=== PATIENT | female | born 1970 | race Caucasian/White ===

== ENCOUNTER → 2018-01-26 16:58 | Outpatient (CLI) | payer OTHER, SELFPAY ==
--- NOTE | 2018-01-26 17:01 | DI.MRI.S_ITS ---
PROCEDURE: MR LUMBAR SPINE WO CON INDICATIONS: LUMBAR SPINE PAIN TECHNIQUE: Noncontrast sagittal T1 spin echo and T2 fast echo, sagittal STIR, axial T1 and T2 fast spin echo through the lumbar spine. In cases with scoliosis, additional coronal T2 fast spin echo may be performed. COMPARISON: None. FINDINGS: Image quality: Excellent. Alignment and Curvature: There is normal bony alignment. Bone Marrow: Marrow is of normal overall signal. No acute vertebral body compression fractures. Spinal Cord: Conus medullaris terminates at the L1 level. Visualized cord demonstrates normal signal and size. Paraspinous Soft Tissues: No paravertebral masses. T12-L1: Normal appearance. L1-L2: Normal appearance. L2-L3: Normal appearance. L3-L4: Mild loss of disc height is seen. Loss of disc signal is seen. Mild generalized disc bulge is seen. Mild facet joint hypertrophy is seen. Minimal bilateral neural foraminal narrowing is seen. Minimal central canal narrowing is seen. L4-L5: The disc height is well-preserved. Loss of disc signal is seen at this level. Minimal bilateral neural foraminal narrowing is seen at this level. No significant central canal narrowing is seen. L5-S1: Normal appearance. IMPRESSION: Minimal to mild lower lumbar spine degenerative changes can be seen. Dictated by: Stefan Aldridge M.D. on 01/26/2018 at 17:01 Approved by: Stefan Aldridge M.D. on 01/26/2018 at 17:03
== END ==
PROVIDERS: Visit Provider Nurse Practitioner Family
DX: M54.5 Low back pain (principal); M51.26 Other intervertebral disc displacement, lumbar region
CPT/HCPCS: 72148

== ENCOUNTER 2018-08-13 09:35 | Day surgery (SDC) | payer OTHER, SELFPAY ==
[2018-08-13 09:51] VITALS: BP 140/74; PULSE 81; RESP 16; TEMP 37; O2SAT 100; BMI 33.4
[2018-08-13] MEDS: SODIUM CHLORIDE 0.9% 1,000 ML 200 ML IV (09:55)
--- NOTE | 2018-08-13 10:18 | PM.HP.1 ---
History of Present Illness Date Patient Seen: 08/13/18 Time Patient Seen: 10:18 Chief complaint: [id number] Narrative: Asymptomatic patient here for her 1st screening colonoscopy Patient History Social History household members: spouse Family & Social History Social History: household members spouse Meds Home Medications Medication Instructions Recorded Confirmed Type gabapentin 300 mg PO BID 08/13/18 08/13/18 History metoprolol succinate 25 mg PO BID 08/13/18 08/13/18 History simvastatin 10 mg PO QPM 08/13/18 08/13/18 History telmisartan [Micardis] 20 mg PO DAILY 08/13/18 08/13/18 History Allergies Allergy/AdvReac Type Severity Reaction Status Date / Time codeine Allergy Intermediate itching Verified 08/13/18 09:50 hydrocodone Allergy Intermediate Rash Verified 08/13/18 09:49 Sulfa (Sulfonamide Allergy Intermediate Hives Verified 08/13/18 09:48 Antibiotics) contrast dye Allergy Severe Anaphylaxis Uncoded 08/13/18 09:49 Review of Systems Review of Systems All systems reviewed & are unremarkable except as noted in HPI and below Exam Vital Signs (past 8 hours): - 08/13/18 09:51 Temperature 98.6 F Pulse Rate 81 Respiratory Rate 16 Blood Pressure 140/74 Pulse Oximetry 100 Oxygen Delivery Method Room Air Narrative Exam Narrative: The patient is alert and oriented vital signs are stable Lungs are clear no rales or wheezes Heart regular rhythm no murmur Abdomen soft and nontender Rectal to be done at colonoscopy Assessment & Plan Assessment & Plan narrative: Patient is here for her 1st screening colonoscopy is asymptomatic with no melena no hematochezia she understands the procedure and has no further questions.
[2018-08-13] MEDS: fentaNYL 250 MCG/5 ML INJ IV (10:29)
[2018-08-13] MEDS: MIDAZOLAM 5 MG/5 ML VIAL IV (10:30)
--- NOTE | 2018-08-13 10:47 | PM.OP.ENDO ---
Operative Date/Time/Diagnoses Date of procedure: 08/13/18 Time of procedure: 10:47 Pre-op diagnosis: Screening colonoscopy Post-op diagnosis: same Procedure & Clinicians Study performed: Total colonoscopy to the cecum Same procedure as scheduled: Yes Indications: Screening Surgeon: Best Miller Procedure Notes SCOAP/Timeout: Done Procedure in detail: Patient is properly identified during surgical pause given a total of 6 mg of Versed and 200 micro g of fentanyl throughout the procedure. The flexible fiberoptic colonoscope inserted transanally to the cecum patient has a normal colon. No tumors no polyps no ulcers no diverticuli procedure was well tolerated Scope withdrawal time: 7 Sedation minutes: 22 Specimen(s): none sent Complications: none Impression: Normal colon Recommendations: Colonscopy in 10 years Follow up: as needed Disposition: PACU
[2018-08-13 10:48] VITALS: BP 110/76; PULSE 85; RESP 12; TEMP 36.7; O2SAT 100
[2018-08-13 10:53] VITALS: BP 110/63; PULSE 77; RESP 12; TEMP 36.4; O2SAT 100
[2018-08-13 11:05] VITALS: BP 113/60; PULSE 69; RESP 14; TEMP 36.2; O2SAT 100
[2018-08-13 11:12] VITALS: BP 123/65; PULSE 62; RESP 12; TEMP 36.3; O2SAT 100
== END 2018-08-13 11:16 | disposition home or self-care (01) ==
PROVIDERS: PCP Nurse Practitioner; Visit Provider Surgery
PROC: 0DJD8ZZ Inspection of Lower Intestinal Tract, Via Natural or Artificial Opening Endoscopic (ICD-10-PCS; CPT 45378; principal; 2018-08-13 10:15)
DX: Z12.11 Encounter for screening for malignant neoplasm of colon (principal)
CPT/HCPCS: 45378; 99152; J2250; J3010

== ENCOUNTER 2023-09-23 11:39 | Day surgery (SDC) | payer OTHER, SELFPAY ==
--- NOTE | 2023-09-23 | PATH_ITS ---
[facility] Accession Number: [id number] No. of containers..03 Tissue . 01 Material submitted: . PART A: duodenum - DUODENUM PART B: stomach - STOMACH PART C: colon - RANDOM COLON BIOPSIES . 01 Clinical history: . A) R/O CELIAC C) FOR DIARRHEAD . 01 Diagnosis: A. DUODENUM, BIOPSY: Duodenal mucosa with mild non-specific chronic inflammation, focal minimal acute inflammation, and reactive changes. No intraepithelial lymphocytosis seen. . B. STOMACH, BIOPSY: Gastric antral and fundic-type mucosa within normal limits. Negative for intestinal metaplasia and dysplasia. No Helicobacter pylori organisms seen on immunohistochemistry. . C. COLON, RANDOM, BIOPSIES: Colonic mucosa within normal limits. MRV 09/29/2023 1555 Local . 01 Electronically signed: . Jeri Browning MD, Pathologist NPI- [id number] . 01 Gross description: . A. Received in formalin with two patient identifiers and duodenum, are two lopez soft tissue fragments, both measuring 0.3 cm in greatest dimension. Submitted entirely in A1. B. Received in formalin with two patient identifiers and stomach, are two lopez soft tissue fragments, 0.2 to 0.5 cm in greatest dimension. Submitted entirely in B1. C. Received in formalin with two patient identifiers and random colon biopsy, are multiple lopez soft tissue fragments aggregating to 1.0 x 0.5 x 0.2 cm. Filtered and submitted entirely in C1. ([id number]) /MRV 09/24/2023 1616 Local . 01 Microscopic: . B. An immunohistochemical stain was performed to evaluate for Helicobacter organisms and is negative. The control stain showed appropriate reactivity. . * This test was developed and its performance characteristics determined by [employer]. It has not been cleared or approved by the U.[place]. Food and Drug Administration. The FDA has determined that such clearance or approval is not necessary. This test is used for clinical purposes. It should not be regarded as investigational or for research. . 01 Pathologist provided ICD-10: R19.7 . 01 CPT . 151453, 754171, 812109, [id number] Specimen Comment: A courtesy copy of this report has been sent to [phone] Performed at: [address] [id number] MD Reed Durant MD Phone: [phone]
[2023-09-23 12:15] VITALS: BP 152/79; PULSE 84; RESP 16; TEMP 36.8; O2SAT 99
[2023-09-23] MEDS: LACTATED RINGERS 1,000 ML 100 ML IV (12:19)
--- NOTE | 2023-09-23 12:36 | P.HP_ITS ---
History of Present Illness History of Present Illness Chief complaint: EGD/Colonoscopy Narrative: Guaiac-positive stools with history of diarrhea dyspepsia and GE reflux [facility] Medical History (Updated 09/23/23 @ 11:51 by Khadijah Haddad RN) History of heart disease History of hypertension Social History household members: spouse Smoking Status: Former smoker alcohol intake: current Meds Home Medications and Allergies Home Medications Medication Instructions Recorded Confirmed Type metoprolol succinate 25 mg 25 mg PO BID 08/13/18 09/23/23 History tablet,extended release 24 hr simvastatin 10 mg tablet 10 mg PO QPM 08/13/18 09/23/23 History Dexamethasone 15 ml dental DAILY 09/23/23 09/23/23 History Loratadine 10 mg PO DAILY 09/23/23 09/23/23 History Omeprazole 20 mg PO DAILY 09/23/23 09/23/23 History Allergies Allergy/AdvReac Type Severity Reaction Status Date / Time Iodinated Contrast Media Allergy Severe Anaphylaxis Verified 08/13/18 10:33 [Iodinated Contrast- Oral and IV Dye] codeine Allergy Intermediate itching Verified 08/13/18 09:50 hydrocodone Allergy Intermediate Rash Verified 08/13/18 09:49 Sulfa (Sulfonamide Allergy Intermediate Hives Verified 08/13/18 09:48 Antibiotics) meperidine [From Demerol] Allergy Redness of Verified 09/23/23 11:56 Skin Exam Vital Signs (past 8 hours): - 09/23/23 12:15 Temperature 98.2 F Pulse Rate 84 Respiratory Rate 16 Blood Pressure 152/79 H Pulse Oximetry 99 Oxygen Delivery Method Room Air Oxygen Delivery Method Room Air Narrative Exam Narrative: Oropharynx free of lesions Chest clear to auscultation percussion Cardiac exam reveals no S3 or murmur Assessment & Plan Assessment & Plan narrative: Guaiac-positive stools with history of GE reflux dyspepsia and diarrhea. Need for EGD and colonoscopy with biopsies. Risks, benefits, alternatives have been explained.
--- NOTE | 2023-09-23 12:38 | PM.OP.EC ---
Operative Date/Time/Diagnoses Date of procedure: 09/23/23 Pre-op diagnosis: See indication and findings Procedure & Clinicians Study performed: EGD and colonoscopy Indications: Guaiac-positive stools with GE reflux diarrhea and dyspepsia Surgeon: Franca Iglesias Procedure Notes Procedure in detail: After informed consent was obtained the patient was placed in left lateral decubitus position. The video upper scope was placed into the oropharynx and with the patient's help swallowed into the esophagus. The esophagus stomach and duodenum were carefully examined. On withdrawal, retroflexed view the GE junction was performed. The scope was removed. The patient tolerated procedure well. The patient was then turned and the colonoscope substituted. This was passed through the rectum to the cecum. On slow withdrawal mucosa was carefully examined. The scope was removed. The patient tolerated procedure well. Blood loss none Complications none Sedation mac Findings EGD 1. Normal esophagus 2. Mild patchy erythema biopsies taken to rule out Helicobacter 3. Duodenal bulb with 1 cm superficial ulceration 4. Duodenal biopsies taken to rule out celiac Colonoscopy 1. Random biopsies taken to rule out microscopic colitis 2. Otherwise normal colonoscopy to cecum Will be in touch but her biopsies. I would suggest that she go out and buy [id number] pantoprazole 40 mg to take once a day for healing of her ulcer. If Helicobacter is present we will send in additional medications
[2023-09-23 13:20] VITALS: BP 126/72; PULSE 78; RESP 18; TEMP 36.4; O2SAT 100
[2023-09-23 13:25] VITALS: BP 150/72; PULSE 75; RESP 16; O2SAT 100
[2023-09-23 13:30] VITALS: BP 155/79; PULSE 75; RESP 12; TEMP 36.4; O2SAT 100
[2023-09-23 13:36] VITALS: BP 155/75; PULSE 763; RESP 12; O2SAT 100
== END 2023-09-23 13:50 | disposition home or self-care (01) ==
PROVIDERS: PCP Nurse Practitioner; Referring Provider Internal Medicine Gastroenterology; Visit Provider Internal Medicine Gastroenterology
PROC: 0DJ08ZZ Inspection of Upper Intestinal Tract, Via Natural or Artificial Opening Endoscopic (ICD-10-PCS; CPT 43235; principal; 2023-09-23 12:30)
PROC: 0DJD8ZZ Inspection of Lower Intestinal Tract, Via Natural or Artificial Opening Endoscopic (ICD-10-PCS; CPT 45378; 2023-09-23 12:30)
DX: R19.7 Diarrhea, unspecified (principal); K21.9 Gastro-esophageal reflux disease without esophagitis; R19.5 Other fecal abnormalities; R10.13 Epigastric pain; K26.9 Duodenal ulcer, unspecified as acute or chronic, without hemorrhage or perforation; K29.80 Duodenitis without bleeding
CPT/HCPCS: 45378; 43239; J2704